=== PATIENT | female | born 1990 | race Caucasian/White ===

== ENCOUNTER 2016-07-02 14:34 | Emergency (ER) | payer OTHER | END 2016-07-02 16:55 | disposition home or self-care (01) | DX: M25.511 Pain in right shoulder (principal); X50.0XXA Overexertion from strenuous movement or load, initial encounter; Y93.F2 Activity, caregiving, lifting; Y99.0 Civilian activity done for income or pay; R03.0 Elevated blood-pressure reading, without diagnosis of hypertension ==